=== PATIENT | male | born 1965 | race Caucasian/White ===

== ENCOUNTER 2021-12-07 14:04 | Emergency (ER) | payer SELFPAY ==
[~2021-12-07] VITALS: Ht 157.5 cm; Wt 54.5 kg
[2021-12-07 14:20] VITALS: BP 124/79; PULSE 78; TEMP 97.2
[2021-12-07] MEDS ORDERED: NAPROSYN500 MG PO (15:16)
[2021-12-07] MEDS ORDERED: FLEXERIL 1010 MG/TAB PO (15:16)
== END 2021-12-07 15:28 | disposition home or self-care (01) ==
LOC: COL.ER 14:04
DX: S39.012A Strain of muscle, fascia and tendon of lower back, initial encounter (principal); X50.0XXA Overexertion from strenuous movement or load, initial encounter; Y93.F2 Activity, caregiving, lifting
CPT/HCPCS: J1885